=== PATIENT | male | born 1980 | race Caucasian/White ===

== ENCOUNTER 2018-04-06 16:36 | Emergency (ER) | payer OTHER ==
[~2018-04-06] VITALS: Ht 170.2 cm; Wt 75.0 kg
[2018-04-06] MEDS ORDERED: fentaNYL 100 MCG/2 ML INJECTION (J3010) IV ONE ×3 (17:30→18:45)
[2018-04-06] MEDS ORDERED: NS 1,000 ML IV SCH (17:38)
[2018-04-06] MEDS ORDERED: ADACEL/BOOSTRIX VACCINE (DIPHTH/PERTUSS/ACELL/TETANUS)0.5ML SYR (90715) IM ONE (17:45)
[2018-04-06] MEDS ORDERED: PROPOFOL 200 MG/20 ML VIAL IV ONE ×2 (18:00→18:45)
[2018-04-06] MEDS ORDERED: KETAMINE HCL 200 MG/20 ML VIAL IV ONE (18:30)
--- NOTE | 2018-04-06 19:09 | REP ---
AP lateral left ankle one-view History: Trauma Comparison: 04:48 p.m. 04/06/2018 A plaster cast is present obscuring detail. There is a comminuted fracture of the distal tibia. There is minimal widening of the superior medial joint space. Impression: Comminuted fracture of the distal tibia with minimal widening of the superior medial joint space. Electronically Signed by Arley Gross MD 04/06/2018 07:01 P
--- NOTE | 2018-04-06 19:30 | REP ---
Left ankle series: Four views: History: Trauma. Findings: Four views of the left ankle demonstrate a severely comminuted fracture dislocation of the ankle. The medial metaphysis and the hind foot are displaced medially relative to the proximal tibial fragment and there is impaction. No definite fibular fracture is seen but the distal tibia shows comminution and extensive disruption. Associated swelling. There are no visible talar or other hind foot fractures. Impression: Severely comminuted impacted fracture dislocation of the ankle. Extensive comminuted disruption of the distal tibia is seen. No definite fibular or hindfoot fracture is appreciated. Electronically Signed by Chance Bowling MD 04/06/2018 08:19 P
[2018-04-06] MEDS ORDERED: MORPHINE 4 MG/ML 1ML VIAL/SYRINGE (J2270) IV PRN (20:00)
[2018-04-06 20:12] VITALS: BP 183/111
--- NOTE | 2018-04-07 21:14 | CR ---
DATE OF CONSULTATION: 04/06/2018 Asked to evaluate left ankle by the emergency room (ER), Dr. Del Toro. Patient is a 37-year-old male. He was on elevated section of wood that covered with ice. He was at work. He slipped. He injured the ankle. He had significant pain. Could not weight bear. Was brought into the ER for further evaluation, where imaging studies reflected quite comminuted pilon fracture dislocation of the ankle. Orthopedics was consulted. I reviewed the imaging studies. I determined that this was not an injury which would be appropriate for a critical access hospital hospital. It feel it is an injury that is more appropriate for [facility] with a trauma department. The patient is otherwise healthy. No allergies. MEDICAL PROBLEMS: No medical issues. PAST SURGICAL HISTORY: Not contributory. FAMILY HISTORY: Not contributory. No history blood clots. HOME MEDICATIONS: No specific medications. SOCIAL HISTORY: Includes history of nicotine use. History of occasional alcohol use. IMAGING STUDIES: Reviewed as above. CLINICAL EXAMINATION: Alert, oriented, and cooperative. Mood and affect are appropriate. Appears to be stated age of 37. He has discomfort at the left ankle. There is mild edema at the left ankle. No fracture, blisters. No open wounds. Sensate. No effusion is present. No pain with hip rotation. Dr. Del Toro implemented conscious sedation, and I implemented a closed reduction and applied a posterior and U-shaped split. During the closed reduction, the patient was quite significantly combative despite use of an impressive volume of propofol and other sedatives. Postreduction imaging studies reflected continued comminution at the fracture but improvement in overall alignment compared to prereduction studies. IMPRESSION: Pilon fracture of the left tibia. RECOMMENDATIONS: This is a quite significant injury. There is a risk of loss of limb. I talked to the patient as well as Dr. Del Toro about arranging for transfer to [facility], and that was promptly arranged, and they were agreeable to receiving this injury. Followup with me will be as needed. For further details please refer to the medical record.
== END 2018-04-06 20:20 | disposition short-term general hospital (02) ==
LOC: M ED 16:36
DX: S82.872A Displaced pilon fracture of left tibia, initial encounter for closed fracture (principal); W00.0XXA Fall on same level due to ice and snow, initial encounter; Y92.89 Other specified places as the place of occurrence of the external cause; Y99.0 Civilian activity done for income or pay; F17.210 Nicotine dependence, cigarettes, uncomplicated
CPT/HCPCS: 27752; 73600; 73610; 90471; 90715; 93041; 96374; 96375; 99156; 99157; 99285; J2270; J3010

== ENCOUNTER → 2024-05-13 | Outpatient (CLI) | payer OTHER | LOC: M CARPUL 13:07 | PROVIDERS: ATTEND Internal Medicine Cardiovascular Disease | DX: R94.31 Abnormal electrocardiogram [ECG] [EKG] (principal) ==

== ENCOUNTER → 2024-07-19 | Outpatient (CLI) | payer OTHER | LOC: M CARPUL 15:03 | PROVIDERS: ATTEND Internal Medicine Cardiovascular Disease | DX: R94.31 Abnormal electrocardiogram [ECG] [EKG] (principal); I10 Essential (primary) hypertension; R01.2 Other cardiac sounds; I34.1 Nonrheumatic mitral (valve) prolapse; I36.1 Nonrheumatic tricuspid (valve) insufficiency ==